=== PATIENT | male | born 1965 | race Caucasian/White ===

== ENCOUNTER 2020-02-27 10:14 | Inpatient (IN) | payer OTHER ==
[~2020-02-27] VITALS: Ht 177.8 cm; Wt 112.7 kg
--- NOTE | ~2020-02-27 | OP ---
[facility] [address] [place] [address] OPERATIVE REPORT Name: SADAF HILTON Room: [place] [id number] ADM IN M.R.#: [id number] Admission: 02/27/20 Attend Phys: Arian Monsalve MD Discharge: Date of : 69 Report #: [id number] THIS REPORT FOR: cc: Altaf Pérez Vincent R. DO ~ Lon Lyle MD DATE OF SERVICE: 02/27/2020 PREOPERATIVE DIAGNOSIS: Perineal abscess. POSTOPERATIVE DIAGNOSIS: Perineal abscess. OPERATION: Incision and drainage of perineal abscess. SURGEON: Lon Lyle MD ANESTHESIA: General. ESTIMATED BLOOD LOSS: Minimal. SPECIMEN: Fluid for culture and sensitivity. DESCRIPTION OF PROCEDURE: After informed consent was obtained, the patient was brought to the operating room and placed supine. SCDs were placed and working, preoperative antibiotics were administered, general anesthesia was induced. The patient was placed in lithotomy position. The area was then prepped and draped in the usual sterile fashion. He had a very large fluctuant area in the perineum. This was incised with cautery. Immediately, there was a bertrand of pus. I then explored the cavity. This a large cavity consistent with the CT findings. Loculations were broken up with a clamp. The area was then copiously irrigated with normal saline. It was then packed with iodoform gauze. Sterile dressings were applied. COMPLICATIONS: None. DISPOSITION: The patient was taken to recovery in satisfactory condition. By: [id number] Lyle MD /nt
[~2020-02-27 10:14] MED LIST: KEFLEX500 MG PO; NORCO 5-325 TA1 EACH PO
[2020-02-27 10:29] VITALS: BP 178/98
[2020-02-27 11:20] LABS: ABSOLUTE BASOPHILS 0.1 thou/uL (0.0-0.2); ABSOLUTE EOSINOPHILS 0.1 thou/uL (0.0-0.7); ABSOLUTE LYMPHOCYTES 1.8 thou/uL (0.8-5.3); ABSOLUTE MONOCYTES 1.5 thou/uL (0.0-1.2); ABSOLUTE NEUTROPHILS 11.2 thou/uL (1.6-8.1); BASOPHILS 0.6 %; EOSINOPHILS 0.7 %; HEMATOCRIT 42.1 % (42.0-52.0); HEMOGLOBIN 14.5 gm/dL (14.0-18.0); LYMPHOCYTES 12.4 %; MCH 32.5 pg (26.0-34.0); MCHC 34.5 g/dL (28.0-37.0); MCV 94.1 fL (80.0-100.0); MONOCYTES 10.2 %; MPV 7.9 fl. (7.2-11.1); NUCLEATED RBCS 0 /100WBC; PLATELET COUNT* 286 thou/uL (150-400); POLYS 76.1 %; RBC 4.48 mil/uL (4.50-6.00); RDW-CV 12.9 % (10.5-14.5); WBC 14.7 thou/uL (4.0-11.0)
[2020-02-27 11:28] LABS: CALCIUM 8.7 mg/dL (8.5-10.1); POTASSIUM 3.3 mmol/L (3.5-5.1)
[2020-02-27 11:33] LABS: ALBUMIN 3.5 g/dL (3.4-5.0); TOTAL BILIRUBIN 1.8 mg/dL (<0.1-1.0); TOTAL PROTEIN 8.3 g/dL (6.4-8.2)
[2020-02-27 14:20] VITALS: BP 128/32
[2020-02-27] MEDS ORDERED: VITCB500GO (19:25)
[2020-02-27] MEDS ORDERED: VITAMIN D PO (19:27)
[2020-02-27] MEDS ORDERED: ZINC SULFATE220 MG PO (19:28)
[2020-02-27 19:45] VITALS: BP 131/79
[2020-02-28 00:35] VITALS: BP 149/82
[2020-02-28 08:00] VITALS: BP 147/73
[2020-02-28 09:03] LABS: ABSOLUTE BASOPHILS 0.1 thou/uL (0.0-0.2); ABSOLUTE MONOCYTES 1.3 thou/uL (0.0-1.2); ABSOLUTE NEUTROPHILS 10.1 thou/uL (1.6-8.1); BASOPHILS 0.4 %; EOSINOPHILS 0.1 %; HEMATOCRIT 40.5 % (42.0-52.0); HEMOGLOBIN 13.6 gm/dL (14.0-18.0); MCH 31.6 pg (26.0-34.0); MCHC 33.6 g/dL (28.0-37.0); MONOCYTES 9.4 %; NUCLEATED RBCS 0 /100WBC; PLATELET COUNT* 313 thou/uL (150-400); POLYS 75.1 %; RBC 4.31 mil/uL (4.50-6.00); RDW-CV 12.8 % (10.5-14.5); WBC 13.5 thou/uL (4.0-11.0)
[2020-02-28 09:24] LABS: CALCIUM 8.7 mg/dL (8.5-10.1); POTASSIUM 3.5 mmol/L (3.5-5.1)
[2020-02-28] MEDS ORDERED: PERCOCET 7.5-31 EACH PO (11:28)
[2020-02-28] MEDS ORDERED: AUGMENTIN 875-1 EACH PO (11:28)
[2020-02-28 12:33] VITALS: BP 147/73
[2020-02-28 15:57] VITALS: BP 147/73
== END 2020-02-28 15:05 | disposition home or self-care (01) | DRG 872 ==
LOC: M.ERS 10:14 → M.3W 13:38 → M.TBA-ER 13:38 → M.3W 17:03
PROVIDERS: Emergency Medicine Emergency Medical Services; ADMIT Internal Medicine; ATTEND Internal Medicine
PROC: 0W9M0ZZ Drainage of Male Perineum, Open Approach (ICD-10-PCS; principal; 2020-02-27)
DX: A41.9 Sepsis, unspecified organism (principal); L02.215 Cutaneous abscess of perineum; Z20.828 Contact with and (suspected) exposure to other viral communicable diseases; Z87.891 Personal history of nicotine dependence; Z79.899 Other long term (current) drug therapy; Z79.891 Long term (current) use of opiate analgesic